=== PATIENT | female | born 1980 | race Caucasian/White ===

== ENCOUNTER 2017-09-20 16:41 | Outpatient (CLI) | payer OTHER ==
[2017-09-20 17:25] LABS: Hemoglobin 13.4 g/dL (12.0-16.0); Mean Corpuscular HGB CONC 32.5 g/dL (32.0-36.0); Mean Corpuscular Hemoglobin 32.5 pg (27.0-31.0); Mean Corpuscular Volume 99.9 fl (81.0-99.0); Mean Platelet Volume 8.6 fL (7.4-10.4); Platelet Count 249 thou/uL (130-400); RBC Distribution Width 11.8 % (11.5-14.5); Red Blood Cell (RBC) Count 4.11 mill/uL (4.20-5.40); White Blood Cell (WBC) Count 8.8 thou/uL (4.8-10.8)
[2017-09-20 17:30] LABS: BHCG - Serum Negative (NEGATIVE); Pregs Control Background? CLEAR/WHITE (CLR/WHITE); Pregs Control Bar Appear? YES (CONTROL BAR)
== END 2017-09-20 16:42 | disposition home or self-care (01) ==
LOC: LABBT 16:41
PROVIDERS: ATTEND Obstetrics & Gynecology
DX: Z01.812 Encounter for preprocedural laboratory examination (principal); N92.0 Excessive and frequent menstruation with regular cycle; R10.2 Pelvic and perineal pain; G89.29 Other chronic pain
CPT/HCPCS: 84703; 85027; 86850; 86900; 86901

== ENCOUNTER 2017-09-26 05:45 | Observation (INO) | payer OTHER ==
[2017-09-20 17:09] VITALS: BMI 25.0
--- NOTE | 2017-09-24 21:11 | HP ---
SCHEDULED PROCEDURE: Total laparoscopic hysterectomy with bilateral salpingectomy, da Brodie. HISTORY OF PRESENT ILLNESS: Ms. Hoskins is a 36-year-old 9, para 2, AB 1, 2 BTL with a histor y of dysmenorrhea and pelvic pain that has been unresponsive to medical therapy. Ultrasound shows a small homogeneous appearing uterus with possible adenomyosis. The patient desires definitive surgica l management. OB AND COMMERCIAL LOAN ADMINISTRATOR HISTORY: As noted. SVDs, BTLs, no dysplasia, history of cryosurgery in 2005, negative Pa p since then. MEDICAL HISTORY: Asthma. PAST SURGICAL HISTORY: Breast augmentation, cholecystectomy and 2 BTL. ALLERGIES: None. MEDICATIONS: Stanton, ketorolac, and Depo-Provera. SOCIAL HISTORY: Tobacco use, denies alcohol or IV drug abuse. FAMILY HISTORY: Noncontributory. REVIEW OF SYSTEMS: Noncontributory. PHYSICAL EXAMINATION: GENERAL: White female. VITAL SIGNS: 5 feet 3, 164, BMI 29, blood pressure 110/80. HEENT: Within normal limits. LUNGS: Clear to auscultation bilaterally. HEART: Regular rhythm. BREASTS: Breast masses bilaterally. Bilateral implants noted. ABDOMEN: Soft, nontender, no rebound or guarding. PELVIC: Vulva without lesions. Vagina without discharge. Cervix parous. Uterus anteverted, 6 week size, tender on exam. Bimanual reveals no adnexal masses. EXTREMITIES: Without clubbing, cyanosis or edema. IMPRESSION: Persistent dysmenorrhea and menorrhagia, desiring definitive surgical management, likely adenomyosis. PLAN: TLH, bilateral salpingectomy with da Brodie. We will administer appropriate antibiotic and DVT prophylaxis.
[2017-09-26] MEDS ORDERED: SODIUM CHLORIDE 0.9% IVPB SCH (06:30)
[2017-09-26] MEDS ORDERED: IBUPROFEN IVPB SCH (06:30)
[2017-09-26] MEDS ORDERED: CEFAZOLIN/Water 2 GM/20 ML SYRINGE ONE (06:33)
[2017-09-26] MEDS ORDERED: Lidocaine 2% w/Epinephrine 1:200K 20 ML VIAL ONE (06:53)
[2017-09-26] MEDS ORDERED: Bupivacaine 0.25% HCL 30 ML VIAL ONE (06:53)
[2017-09-26] MEDS ORDERED: Fentanyl 100 MCG/2 ML VIAL ONE ×4 (07:01→10:41)
[2017-09-26] MEDS ORDERED: Morphine 4 MG/ML Carpuject ONE (07:01)
[2017-09-26] MEDS ORDERED: Midazolam HCl 2 mg/2 ml Vial ONE (07:07)
[2017-09-26] MEDS ORDERED: Ondansetron HCl/PF 4 MG/2 ML Vial IVP PRN ×2 (09:12→10:02)
[2017-09-26] MEDS ORDERED: Promethazine HCl 25 MG/ML VIAL SLOW IVP PRN (09:12)
[2017-09-26] MEDS ORDERED: Promethazine HCl 25 MG/ML VIAL IM PRN ×2 (09:12→10:02)
[2017-09-26] MEDS ORDERED: Ropivacaine HCl/PF 750 ML in Premix Bag 1 BAG NERVE BLCK SCH (09:45)
[2017-09-26] MEDS ORDERED: Zolpidem Tartrate 5 MG TAB PO PRN (10:02)
[2017-09-26] MEDS ORDERED: diphenhydrAMINE 25 MG CAP PO PRN (10:02)
[2017-09-26] MEDS ORDERED: Bisacodyl 10 MG SUPP PR PRN (10:02)
[2017-09-26] MEDS ORDERED: Simethicone Chewable 80 MG TAB PO PRN (10:02)
[2017-09-26] MEDS ORDERED: Morphine 5 MG/ML SYRINGE SLOW IVP PRN (10:10)
--- NOTE | 2017-09-26 10:55 | OP ---
DATE OF PROCEDURE: 09/26/2017 PREOPERATIVE DIAGNOSES: Dysmenorrhea, pelvic pain. POSTOPERATIVE DIAGNOSES: Dysmenorrhea, pelvic pain. PROCEDURE: Total laparoscopic hysterectomy, bilateral salpingectomy with da Brodie robot assist. SURGEON: Kamari Goss M.D. ADHESIVE SPRAYER: Melida Anne D.O. ESTIMATED BLOOD LOSS: 25 mL. SPECIMENS REMOVED: Uterus, bilateral tubes. DRAINS: Christie to gravity. MEDICATIONS: Two grams Ancef preincision. DVT PROPHYLAXIS: SCDs. OPERATIVE FINDINGS: 1. Approximately 6-8 week size uterus with appearance consistent with adenomyosis. 2. Normal appearing tubes and ovaries, status post bilateral midsegment salpingectomy. 3. Hemostasis with clear urine, counts correct at the end of the procedure. DISPOSITION: To the recovery room in good condition. DESCRIPTION OF OPERATIVE PROCEDURE: After obtaining proper operative consent, the patient was taken to the operating room where general endotracheal anesthesia was achieved without difficulty. The pat ient was prepped and draped in dorsal lithotomy in Vincent stirrups. Side-viewing speculum placed in v agina, cervix identified, grasped with the tenaculum. Uterus sounded to 8 cm. SANDEEP manipulator, a 3 .5 vaginal cardiothoracic icu rn, 8 cm obturator placed without difficulty. Christie catheter placed and hooked up to 60 mL syringe after draining 250 mL of clear urine. [employer] Control Room Operator changed his gloves and turned to the abdominally portion of the procedure. Five mL of Marcaine injected at the superior aspect at th e umbilicus at the level of previous midsegment salpingectomy incision, a 12 mm skin incision made. Veress needle placed in the abdominal cavity. Confirmation of entry into the peritoneal cavity via s julio drop test. Insufflation was carried out with carbon dioxide max pressure 15. A 12 mm trocar p laced. Confirmation of entry into the peritoneal cavity, viscera noted. The patient was place d in steep Trendelenburg position. Right and left lateral da Brodie trocars placed without difficulty . An 11 mm right upper quadrant data analysis assistant port was placed as well. Fenestrated bipolar forceps plac ed in the steam brush operator's left hand, monopolar scissors in the right. Ureters were identified bilaterally to the pelvic sidewall, distal aspect of each fallopian tube was removed and sent with the rest of t he specimen for pathologic analysis. The utero-ovarians were then coagulated and transected down to the level round, and through the cardinal to the level of the internal cervical os. Identical proced ure was carried out on each side. The interior of the vesicouterine peritoneum was incised sharply a nd dissected off the lower uterine segment, cervix, and upper vagina, identifying the level of the bl adder with backfill and taking it well off the apex of the vagina. Posteriorly, the peritoneum was o pened up at the level of the uterosacral ligament and the ureter was dissected out laterally. Skelet onization of the uterine vessels carried out bilaterally and these were coagulated and transected. P osteriorly, at the level of the vaginal cardiothoracic icu rn the peritoneum was taken off, the vagina was enter ed posteriorly at 6 o'clock and extended from 6-3, 6-9 and then from 9-12 and from 3-12 amputating th e specimen. This was pulled in the vagina and left there to maintain pneumoperitoneum. Suction irri gation was carried out which revealed no significant bleeding along the cuff. Again the bladder was backfilled to identify its location in relationship to the vaginal cuff. The cuff was closed using a running continuous Stratafix 2-0 PDS. Suction irrigation afterwards revealed good hemostasis on all pedicles. 0.2% bupivacaine on q.8. mL per hour silver outsole rounder catheter was brought into the abdomina l wall just below the level of the umbilicus and placed across the pelvis from left to right. The da Brodie instruments were then removed. The da Brodie undocked. The abdomen desufflated of carbon diox antonino. Trocars removed x4. Fascia reapproximated at the level of the umbilical trocar using an 0 Vicr yl on a UR-5 needle and skin reapproximated x4 using 4-0 Monocryl and Dermabond. The specimen was re moved from the vagina. Inspection of the cuff revealed it to be dry and intact. Clear urine was not ed with another 100 mL production intraoperatively. The patient was awakened, extubated, and taken t o recovery room in good condition.
[2017-09-26] MEDS: Acetaminophen 1,000 MG in Premix Bag 1 BAG IVPB SCH ×2 (11:51→17:13)
[2017-09-26] MEDS: Sodium Chloride 0.9% 1,000 ML IV SCH ×2 (11:55→17:18)
[2017-09-26] MEDS: Ibuprofen 800 MG TAB PO SCH ×2 (15:13→23:03)
[2017-09-26] MEDS: Morphine 5 MG/ML SYRINGE SLOW IVP PRN (15:20)
[2017-09-26] MEDS ORDERED: PROPOFOL 200 MG/20 ML VIAL ONE (16:01)
[2017-09-26] MEDS ORDERED: Glycopyrrolate 0.2 MG/ML 5 ML SYRINGE ONE (16:01)
[2017-09-26] MEDS ORDERED: Ondansetron HCl/PF 4 MG/2 ML Vial ONE (16:01)
[2017-09-26] MEDS ORDERED: Dexamethasone 20 MG/5 ML VIAL ONE (16:01)
[2017-09-26] MEDS ORDERED: Lidocaine 1% PF 5 ML VIAL ONE (16:01)
[2017-09-26] MEDS ORDERED: Loratadine/Pseudoephedrine 10/240 mg Tablet PO SCH (16:45)
[2017-09-27] MEDS: Morphine 5 MG/ML SYRINGE SLOW IVP PRN (02:58)
[2017-09-27] MEDS: Acetaminophen 1,000 MG in Premix Bag 1 BAG IVPB SCH ×2 (03:02→06:11)
[2017-09-27 05:43] LABS: Hemoglobin 12.5 g/dL (12.0-16.0); Mean Corpuscular HGB CONC 32.9 g/dL (32.0-36.0); Mean Corpuscular Hemoglobin 32.9 pg (27.0-31.0); Mean Platelet Volume 8.5 fL (7.4-10.4); Platelet Count 243 thou/uL (130-400); RBC Distribution Width 11.9 % (11.5-14.5); Red Blood Cell (RBC) Count 3.79 mill/uL (4.20-5.40); White Blood Cell (WBC) Count 11.7 thou/uL (4.8-10.8)
[2017-09-27] MEDS: Ibuprofen 800 MG TAB PO SCH (06:11)
[2017-09-27] MEDS: Sodium Chloride 0.9% 1,000 ML IV SCH (06:53)
[2017-09-27 08:15] VITALS: BP 111/77; TEMP 98.5
--- NOTE | 2017-09-27 08:30 | DIS ---
TIME OF SERVICE: 809 ADMISSION DIAGNOSES: Dysmenorrhea and menorrhagia. IN-HOSPITAL PROCEDURES: Total laparoscopic hysterectomy da Brodie and bilateral salpingectomy. SUMMARY OF HOSPITAL COURSE: Ms. Hoskins was admitted and underwent the aforementioned surgery on the morning of the . She had a minimal estimated blood loss. Vital signs were stable postoperativel y and she remained afebrile with a normal heart rate and good urine output. She was voiding with eas e. Her hematocrit was 38%. Postop day #1, she was tolerating p.o. well, ambulating, voiding and pas sing gas. She will be discharged home on preoperative medications. She has postoperative analgesics already prescribed and picked up by the patient. She will be discharged home with an On-Q pump. Th e patient has instructions for self-discontinuation. She will be followed up at [facility] [place] with Dr. Kamari Goss in 4 weeks. PHYSICAL EXAMINATION: HEART: Exam reveals heart regular rate and rhythm. LUNGS: Clear to auscultation bilaterally. ABDOMEN: Soft, nontender, no rebound or guarding. Incisions are well healed and dry. Perineum is d ry. EXTREMITIES: Without clubbing, cyanosis or edema. No evidence of DVT.
[2017-09-27] MEDS ORDERED: Loratadine/Pseudoephedrine 10/240 mg Tablet PO SCH (09:00)
[2017-09-27] MEDS ORDERED: Acetaminophen/Codeine 30-300mg Tablet PO PRN ×2 (12:00)
== END 2017-09-27 08:54 | disposition home or self-care (01) ==
LOC: SDC 05:45 → 3SE 09:28 → EDSTATUS 17:00
PROVIDERS: ADMIT Obstetrics & Gynecology; ATTEND Obstetrics & Gynecology
PROC: 0UT94ZZ Resection of Uterus, Percutaneous Endoscopic Approach (ICD-10-PCS; principal; 2017-09-27)
PROC: 0UT74ZZ Resection of Bilateral Fallopian Tubes, Percutaneous Endoscopic Approach (ICD-10-PCS; 2017-09-27)
DX: N72 Inflammatory disease of cervix uteri (principal); N85.8 Other specified noninflammatory disorders of uterus; N80.0 Endometriosis of uterus; N83.8 Other noninflammatory disorders of ovary, fallopian tube and broad ligament; J45.909 Unspecified asthma, uncomplicated; Z79.899 Other long term (current) drug therapy; Z91.018 Allergy to other foods; Z98.51 Tubal ligation status; Z98.82 Breast implant status; Z90.49 Acquired absence of other specified parts of digestive tract
CPT/HCPCS: 36416; 85027; 88307; 96374; 96375; 96376; J2270; A4216; G0378; J0131; J1100; J2001; J2250; J2405; J2704; J2795; J3010; J7050; S0020